=== PATIENT | female | born 1990 | race African-American/Black ===

== ENCOUNTER 2017-12-02 15:03 | Inpatient (IN) ==
[2017-12-02] MEDS ORDERED: ALBUTEROL 2.5 MG/3 ML NEB RESP TX STA ×5 (15:22→18:15)
[2017-12-02] MEDS ORDERED: MAGNESIUM SULF RIDER 1 GM in PREMIX 1 EACH IV STA (15:24)
[2017-12-02] MEDS ORDERED: ONDANSETRON 4 MG/2 ML VIAL IV ONE (15:24)
[2017-12-02] MEDS ORDERED: methylPREDNISolone SOD SUC 125 MG/2 ML VIAL IV STA (15:32)
[2017-12-02] MEDS ORDERED: ONDANSETRON 4 MG/2 ML VIAL ONE (15:51)
[2017-12-02] MEDS ORDERED: methylPREDNISolone SOD SUC 125 MG/2 ML VIAL ONE (15:51)
[2017-12-02] MEDS ORDERED: MAGNESIUM SULF RIDER 50 ML IV ONE (15:56)
[2017-12-02 16:22] LABS: Basophils % 0.1 % (0.0-0.8); Eosinophils # 0.1 10*3/uL (0.0-0.87); Eosinophils % 0.8 % (0.00-10.9); Hematocrit 37.3 VOL% (35.7-47.0); Hemoglobin 13.2 GM/DL (12.0-16.0); Immature Granulocytes % 0.5 %; Immature Granulocytes Absolute 0.07 #; Lymphocytes # 1.3 10*3/uL (1.4-4.0); Lymphocytes % 8.5 % (21.3-54.2); Mean Corpuscular HGB Conc 35.4 GM/DL (32-36); Mean Corpuscular Hemoglobin 27 PG (27-34); Mean Corpuscular Volume 76.7 FL (87-102); Mean Platelet Volume 10.5 FL (9.6-12.0); Monocytes # 0.9 10*3/uL (0.11-0.8); Monocytes % 5.7 % (1.7-12.7); Neutrophils % 84.4 % (38.7-73.9); Platelet Count 238 T/CUMM (130-400); Red Blood Count 4.86 MC/CUMM (3.8-5.5); Red Cell Distribution Width 13.8 % (9.3-17.3); White Blood Count 15.4 T/CUMM (4-12)
[2017-12-02 16:54] LABS: Calcium 8.9 MG/DL (8.5-10.1); Osmolality,Calculated 272.7 MOS/KG (273-304); Potassium 4.3 MMOL/L (3.5-5.1)
[2017-12-02] MEDS ORDERED: ALBUTEROL/IPRATROPIUM 3 ML NEB RESP TX STA (18:14)
[2017-12-02] MEDS ORDERED: AZITHROMYCIN 250 MG TABLET PO STA (19:13)
[2017-12-02] MEDS ORDERED: AZITHROMYCIN 250 MG TABLET ONE (19:20)
[2017-12-02] MEDS ORDERED: ONDANSETRON 4 MG/2 ML VIAL IV PRN (20:27)
[2017-12-02] MEDS: ALBUTEROL/IPRATROPIUM 3 ML NEB RESP TX SCH (23:46)
[2017-12-03] MEDS: methylPREDNISolone SOD SUC 40 MG/1 ML VIAL IV SCH ×3 (00:25→16:53)
[2017-12-03] MEDS: ALBUTEROL/IPRATROPIUM 3 ML NEB RESP TX SCH ×6 (03:32→23:58)
[2017-12-03 04:11] LABS: Basophils % 0.1 % (0.0-0.8); Hematocrit 33.2 VOL% (35.7-47.0); Hemoglobin 11.8 GM/DL (12.0-16.0); Immature Granulocytes % 0.6 %; Immature Granulocytes Absolute 0.08 #; Lymphocytes # 0.7 10*3/uL (1.4-4.0); Mean Corpuscular HGB Conc 35.5 GM/DL (32-36); Mean Corpuscular Hemoglobin 27 PG (27-34); Mean Corpuscular Volume 75.8 FL (87-102); Mean Platelet Volume 10.6 FL (9.6-12.0); Monocytes # 0.1 10*3/uL (0.11-0.8); Monocytes % 0.8 % (1.7-12.7); Neutrophils # 13.2 10*3/uL (1.4-7.4); Neutrophils % 93.5 % (38.7-73.9); Platelet Count 260 T/CUMM (130-400); Red Blood Count 4.38 MC/CUMM (3.8-5.5); Red Cell Distribution Width 13.5 % (9.3-17.3); White Blood Count 14.1 T/CUMM (4-12)
[2017-12-03 04:39] LABS: Calcium 8.7 MG/DL (8.5-10.1); Potassium 4.6 MMOL/L (3.5-5.1)
[2017-12-03 05:17] LABS: Band Neutrophils 4 % (0-10); Lymphocytes 7 % (20-55); Segmented Neutrophils 88 % (50-85); Total Cells Counted 100
[2017-12-03 05:18] LABS: Microcytosis 1+; Platelet Estimate Normal
[2017-12-03] MEDS: LEVOFLOXACIN INJ 500 MG in PREMIX 1 EACH IV SCH (13:36)
[2017-12-04] MEDS: methylPREDNISolone SOD SUC 40 MG/1 ML VIAL IV SCH ×2 (00:18→09:32)
[2017-12-04] MEDS: ALBUTEROL/IPRATROPIUM 3 ML NEB RESP TX SCH ×3 (04:22→11:03)
[2017-12-04] MEDS ORDERED: PANTOPRAZOLE 40 MG TABLET PO SCH (09:00)
[2017-12-04 09:29] VITALS: BP 104/55
[2017-12-04] MEDS: LEVOFLOXACIN INJ 500 MG in PREMIX 1 EACH IV SCH (09:33)
== END 2017-12-04 13:21 | disposition home or self-care (01) | DRG 141 ==
LOC: EDUNIT# → N.ED 15:03 → N.EDINP 19:28 → N.2E 19:56
PROVIDERS: ADMIT Hospitalist; ATTEND Hospitalist

== ENCOUNTER 2021-10-10 02:30 | Inpatient (IN) ==
[2021-10-10] MEDS ORDERED: MEPERIDINE 50 MG/1 ML VIAL IV PRN (02:43)
[2021-10-10] MEDS ORDERED: BUTORPHANOL 2 MG/ML VIAL IV PRN (02:43)
[2021-10-10] MEDS ORDERED: ONDANSETRON 4 MG/2 ML VIAL IV PRN ×2 (02:43→03:48)
[2021-10-10] MEDS ORDERED: miSOPROStoL 200 MCG TABLET ONE (02:50)
[2021-10-10] MEDS ORDERED: SODIUM CHLORIDE 0.9% 100 ML IV ONE (02:51)
[2021-10-10] MEDS ORDERED: TRANEXAMIC ACID 1,000 MG/10 ML VIAL ONE (02:51)
[2021-10-10] MEDS ORDERED: OXYTOCIN/LR 20 UNIT/1,000 ML BAG IV ONE ×2 (02:51→03:48)
[2021-10-10] MEDS ORDERED: METHYLERGONOVINE 0.2 MG/1 ML AMP ONE (02:52)
[2021-10-10] MEDS ORDERED: CARBOPROST TROMETHAMINE 250 MCG/ML AMP IM ONE (02:52)
[2021-10-10] MEDS ORDERED: LACTATED RINGERS 1,000 ML IV SCH (03:00)
[2021-10-10 03:14] LABS: Basophils % 0.1 % (0.0-0.8); Eosinophils % 0.1 % (0.00-10.9); Hematocrit 29.8 VOL% (35.7-47.0); Hemoglobin 10.2 GM/DL (12.0-16.0); Immature Granulocytes % 1.9 %; Lymphocytes # 1.6 10*3/uL (1.4-4.0); Mean Corpuscular HGB Conc 34.2 GM/DL (32-36); Mean Corpuscular Volume 79.7 FL (87-102); Mean Platelet Volume 11.3 FL (9.6-12.0); Monocytes % 6.2 % (1.7-12.7); Neutrophils % 81.7 % (38.7-73.9); Platelet Count 185 T/CUMM (130-400); Red Blood Count 3.74 MC/CUMM (3.8-5.5)
[2021-10-10] MEDS ORDERED: OXYTOCIN/LR 30 UNIT/1,000 ML BAG IV ONE (03:18)
[2021-10-10] MEDS ORDERED: DIPH/TET/ACEL PERT BOOSTER VACCINE 0.5 ML VIAL IM ONE (03:48)
[2021-10-10] MEDS ORDERED: MEASLES/MUMPS/RUBELLA VACCINE 0.5 ML VIAL SUBCUT ONE (03:48)
[2021-10-10] MEDS ORDERED: BENZOCAINE 20%/MENTHOL 0.5% SPRAY 56 GM CAN TOP PRN (03:48)
[2021-10-10] MEDS ORDERED: oxyCODONE/ACETAMINOPHEN 5-325 MG TABLET PO PRN ×2 (03:48)
[2021-10-10] MEDS ORDERED: ACETAMINOPHEN 325 MG TABLET PO PRN (03:48)
[2021-10-10] MEDS ORDERED: BISACODYL 10 MG SUPP RECTAL PRN (03:48)
[2021-10-10] MEDS ORDERED: LANOLIN 50% CREAM 0.3 OZ TUBE TOP PRN (03:48)
[2021-10-10] MEDS ORDERED: HYDROCORTISONE 2.5% RECTAL CREAM 30 GM TUBE TOP PRN (03:48)
[2021-10-10] MEDS ORDERED: WITCH HAZEL PADS 100/JAR TOP PRN (03:48)
[2021-10-10] MEDS ORDERED: RHO(D) IMMUNE GLOBULIN 300 MCG SYRINGE IM ONE (03:48)
[2021-10-10 03:52] LABS: Cord Venous Blood HCO3 22.3 MMOL/L; Cord Venous Blood PCO2 48.1 MMHG; Cord Venous Blood PO2 21.7
[2021-10-10 03:53] LABS: Albumin 2.7 G/DL (3.4-5.0); Bilirubin,Total 0.5 MG/DL (0.20-1.00); Calcium 8.8 MG/DL (8.5-10.1); Osmolality,Calculated 267.1 MOS/KG (273-304); Potassium 3.6 MMOL/L (3.5-5.1); Total Protein 6.7 G/DL (6.4-8.2)
[2021-10-10] MEDS: IBUPROFEN 800 MG TABLET PO PRN ×2 (05:50→16:13)
[2021-10-10] MEDS: DOCUSATE SODIUM 100 MG CAPSULE PO SCH ×3 (10:05→23:25)
[2021-10-11 04:39] LABS: Bacteria,Urine Occasional /HPF (Few); Bilirubin,Urine Negative (Negative); Blood, Urine Large mg/dL (Negative); Glucose,Urine (UA) Negative (Negative); Ketones,Urine Negative (Negative); Mucus,Urine Occasional /LPF (Occasional); Nitrite,Urine Negative (Negative); Protein,Urine Negative; RBC,Urine 189 /HPF (0-4); Squamous Epithelial Cell,Urine Occasional /HPF (0-10); Urine Appearance CLEAR (Clear); Urine Color Yellow (Yellow); Urine Specific Gravity 1.008 (1.001-1.035); Urine Urobilinogen < 2.0 EU/DL (<2.0)
[2021-10-11 05:00] LABS: Barbiturates Screen,Urine Negative (Negative); Benzodiazepines Screen,Urine Negative (Negative); Cannabinoid Screen,Urine Negative (Negative); Opiate Screen,Urine Negative (Negative); Phencyclidine Screen,Urine Negative (Negative)
[2021-10-11] MEDS ORDERED: MAGNESIUM HYDROXIDE SUSP 30 ML UDCUP PO PRN (07:58)
[2021-10-11] MEDS: DOCUSATE SODIUM 100 MG CAPSULE PO SCH ×2 (08:31→20:14)
[2021-10-11] MEDS: valACYclovir 500 MG TABLET PO SCH (09:12)
[2021-10-11 09:39] LABS: Basophils % 0.2 % (0.2-1.0); Eosinophils # 0.1 # (0.0-0.70); Eosinophils % 0.8 % (0.0-10.0); Hematocrit 26.1 VOL% (37.0-47.0); Lymphocytes # 2.1 # (1.3-2.9); Mean Corpuscular HGB Conc 34.5 GM/DL (32-36); Mean Corpuscular Volume 79.6 FL (81-99); Mean Platelet Volume 12.2 FL (7.4-10.4); Monocytes % 5.6 % (5.5-11.7); Neutrophils % 74.7 % (43.0-65.0); Platelet Count 170 T/CUMM (130-400); Red Blood Count 3.28 MC/CUMM (4.20-5.40); Red Cell Distribution Width 14.2 % (11.5-15.5); White Blood Count 12.1 T/CUMM (4.8-10.8)
[2021-10-11] MEDS: FERROUS SULFATE 325 MG TABLET PO SCH (20:15)
[2021-10-12 07:16] VITALS: BP 111/66
[2021-10-12] MEDS: DOCUSATE SODIUM 100 MG CAPSULE PO SCH (09:05)
[2021-10-12] MEDS: FERROUS SULFATE 325 MG TABLET PO SCH (09:05)
[2021-10-12] MEDS: IBUPROFEN 800 MG TABLET PO PRN (09:06)
[2021-10-12] MEDS: valACYclovir 500 MG TABLET PO SCH (11:37)
== END 2021-10-12 15:01 | disposition home or self-care (01) | DRG 560 ==
LOC: N.LDOUT 02:30 → N.LD 02:34 → N.OB 09:39
PROVIDERS: ADMIT Obstetrics & Gynecology; ATTEND Obstetrics & Gynecology